=== PATIENT | female | born 1965 | race Caucasian/White ===

== ENCOUNTER 2018-02-27 15:12 | Emergency (ER) | payer OTHER ==
[~2018-02-27] VITALS: Ht 167.6 cm; Wt 104.3 kg
[~2018-02-27 15:12] MED LIST: AMIT50; ATEN50; HYDACE5 PO; IBUP600 PO
== END 2018-02-27 16:31 | disposition home or self-care (01) ==
LOC: ER 15:12
DX: R21 Rash and other nonspecific skin eruption (principal); Z88.5 Allergy status to narcotic agent; Z79.899 Other long term (current) drug therapy; Z79.891 Long term (current) use of opiate analgesic; I10 Essential (primary) hypertension; Z87.891 Personal history of nicotine dependence
CPT/HCPCS: 99282

== ENCOUNTER → 2018-05-24 | Outpatient (CLI) | payer OTHER ==
[2018-05-24 13:34] LABS: Creatinine, Urine Random 69.1 mg/dL (27.00-270.00)
[2018-05-24 13:37] LABS: Microalb/Creat Ratio UR, Rand 13.517 mg/g (0.000-30.000); Microalbumin, Random Urine 9.34 mg/L (0.000-20.000)
== END ==
LOC: LAB SHORT 10:15
PROVIDERS: Nurse Practitioner Family
DX: E11.65 Type 2 diabetes mellitus with hyperglycemia (principal)
CPT/HCPCS: 82043; 82570

== ENCOUNTER → 2018-06-10 | Outpatient (CLI) | payer OTHER | LOC: LAB SHORT 15:43 → LAB 15:43 | PROVIDERS: Nurse Practitioner Family | DX: Z12.4 Encounter for screening for malignant neoplasm of cervix (principal) | CPT/HCPCS: 87624; G0145 ==

== ENCOUNTER 2019-03-30 22:56 | Emergency (ER) | payer OTHER ==
[~2019-03-30] VITALS: Ht 167.6 cm; Wt 93.9 kg
[2019-03-30] MEDS ORDERED: METO25ER PO (23:17)
[2019-03-30] MEDS ORDERED: METF500 (23:17)
[2019-03-30] MEDS ORDERED: Prinivil10 MG PO (23:18)
[2019-03-30] MEDS ORDERED: OXYB5 PO (23:18)
[2019-03-31] MEDS ORDERED: IBUP600 PO (00:29)
[2019-03-31] MEDS ORDERED: Neurontin 300300 MG PO (00:29)
[2019-03-31] MEDS ORDERED: ACET500 PO (00:29)
[2019-03-31] MEDS ORDERED: LIDO700A20 TOP (00:29)
== END 2019-03-31 01:00 | disposition home or self-care (01) ==
LOC: ER 22:56
DX: M54.16 Radiculopathy, lumbar region (principal); M53.3 Sacrococcygeal disorders, not elsewhere classified; E11.9 Type 2 diabetes mellitus without complications; I10 Essential (primary) hypertension; Z88.5 Allergy status to narcotic agent; Z79.899 Other long term (current) drug therapy; Z79.84 Long term (current) use of oral hypoglycemic drugs
CPT/HCPCS: 72100; 96372; 99283-25; J1885

== ENCOUNTER → 2019-08-30 | Outpatient (CLI) | payer OTHER ==
[~2019-08-30] MED LIST changes: +ACET500 PO; +LIDO700A20 TOP; +METF500; +METO25ER PO; +Neurontin 300300 MG PO; +OXYB5 PO; +Prinivil10 MG PO
[2019-08-31 14:39] LABS: Stool Occult Bld Immuno 1 Negative (NEGATIVE)
== END | disposition home or self-care (01) ==
LOC: LAB 13:42 → LAB SHORT 13:42
PROVIDERS: Nurse Practitioner Family
DX: Z12.11 Encounter for screening for malignant neoplasm of colon (principal)
CPT/HCPCS: G0328

== ENCOUNTER → 2021-03-10 | Outpatient (CLI) | payer OTHER | END | disposition home or self-care (01) | LOC: LAB SHORT 07:52 | DX: B35.1 Tinea unguium (principal); L60.2 Onychogryphosis | CPT/HCPCS: 88305; 88312 ==

== ENCOUNTER → 2023-04-15 | Outpatient (CLI) | payer OTHER ==
[2023-04-16 21:05] LABS: Adenovirus F 40/41 Not Detected (NOT DETECT); Astrovirus Not Detected (NOT DETECT); Campylobacter Sp Not Detected (NOT DETECT); Cryptosporidium Not Detected (NOT DETECT); Cyclospora Cayetanensis Not Detected (NOT DETECT); E. Coli O157 Not Detected (NOT DETECT); Entamoeba Histolytica Not Detected (NOT DETECT); Enteroaggregative E. coli-EAEC Not Detected (NOT DETECT); Enteropathogenic E. coli-EPEC Not Detected (NOT DETECT); Enterotoxigenic E. coli-ETEC Not Detected (NOT DETECT); Giardia Lamblia Not Detected (NOT DETECT); Norovirus GI/GII Not Detected (NOT DETECT); Plesiomonas Shigelloides Not Detected (NOT DETECT); Rotavirus A Not Detected (NOT DETECT); Salmonella Sp Not Detected (NOT DETECT); Sapovirus Not Detected (NOT DETECT); Shiga Toxin-prod E. coli-STEC Not Detected (NOT DETECT); Shigella/Enteroin E. coli-EIEC Not Detected (NOT DETECT); Vibrio Cholerae Not Detected (NOT DETECT); Vibrio Sp Not Detected (NOT DETECT); Yersinia Enterocolitica Not Detected (NOT DETECT)
== END | disposition home or self-care (01) ==
LOC: LAB 16:22 → LAB SHORT 16:22 → LAB FUT 04-13 17:00
PROVIDERS: Family Medicine
DX: E11.3293 Type 2 diabetes mellitus with mild nonproliferative diabetic retinopathy without macular edema, bilateral (principal); D75.839 Thrombocytosis, unspecified; R19.7 Diarrhea, unspecified
CPT/HCPCS: 87507